=== PATIENT | male | born 1990 | race Caucasian/White ===

== ENCOUNTER 2017-05-13 03:43 | Emergency (ER) | payer OTHER ==
[~2017-05-13] VITALS: Ht 180.3 cm; Wt 104.1 kg
[~2017-05-13 03:43] MED LIST: ATEN50TA8 PO; BUPR1SUB SL
[2017-05-13 03:47] VITALS: TEMP 36.8; Ht 180.3 cm; Wt 104.1 kg
[2017-05-13] MEDS ORDERED: KETOROLAC TROMETHAMINE 30 MG/ML VIAL IV STA (03:59)
[2017-05-13 04:29] VITALS: O2SAT 96
[2017-05-13 04:56] LABS: BASO % 0.4 %; BASO ABS # 0.03 K/uL (0-0.2); EOS % 1.8 %; EOS ABS # 0.14 K/uL (0-0.5); HEMATOCRIT 40.1 % (42-52); HEMOGLOBIN 13.6 g/dL (14.0-18.0); IG# 0.01 K/uL (0.00-0.02); LYMPH % 31.6 %; LYMPH ABS # 2.44 K/uL (1.2-3.4); MEAN CELL VOLUME 91.3 fL (80-100); MEAN CORPUSCULAR HGB CONC 33.9 g/dl (32-36); MONO % 8.8 %; MONO ABS # 0.68 K/uL (0.11-0.59); NEUT % 57.3 %; NEUT ABS # 4.41 K/uL (1.4-6.5); PLATELET COUNT 154 K/uL (130-400); RED CELL DISTRIBUTION WIDTH SD 43.4 fL (36.4-46.3); WHITE BLOOD COUNT 7.71 K/uL (4.8-10.8)
[2017-05-13] MEDS ORDERED: OPTIRAY 320 IV PRN (05:15)
[2017-05-13 05:20] LABS: ALBUMIN 3.5 gm/dl (3.4-5.0); ALT/SGPT 40 U/L (12-78); AST/SGOT 16 U/L (15-37); BLOOD UREA NITROGEN 3 mg/dl (7-18); CALCIUM 8.5 mg/dl (8.5-10.1); CARBON DIOXIDE 31 mmol/L (21-32); CREATININE 0.61 mg/dl (0.60-1.40); GLUCOSE 92 mg/dl (70-99); LIPASE 83 U/L (73-393); POTASSIUM 3.8 mmol/L (3.5-5.1); SODIUM 136 mmol/L (136-145)
[2017-05-13 05:26] LABS: ALKALINE PHOSPHATASE 81 U/L (45-117); TOTAL PROTEIN 7.1 gm/dl (6.4-8.2)
[2017-05-13] MEDS ORDERED: BUPR8SUB19 SL (06:31)
--- NOTE | 2017-05-13 06:51 | EMERGENCY ROOM VISIT NOTE ---
History First contact with patient: 03:56 Chief Complaint: CHEST PAIN Stated Complaint: SHOULDER PAIN,CHEST PAIN Nursing Triage Summary: Pain started 05/12 in right upper chest, about 1600 yesterday pain radiated to left loer chest. Pt denies SOB. History of Present Illness The patient is a 27 year old male who presents to the Emergency Room with complaints of anterior chest pain with mild source of breath past day. Patient states he woke up with right-sided chest pain that has now progressed throughout his chest. He does smoke. No recent travel. No recent IV drug abuse. Last use was one year ago. There is a family history of heart disease. Patient describes the pain as aching, ranging in severity 5 out of 10 worse with movement and better with rest. Patient denies fever, chills, cough, congestion, abdominal pain, leg pain or swelling. Review of Systems See HPI for pertinent positives & negatives. A total of 10 systems reviewed and were otherwise negative. Past Medical/Surgical History none Social History Smoking Status: Current Every Day Smoker Alcohol Use: occasionally Drug Use: other (patient is a history of methadone and heroin use. Last use was one year ago) Current/Historical Medications Scheduled Buprenorphine Hcl (Subutex), 1.5 TAB SL BID Physical Exam Vital Signs Date Time Temp Pulse Resp B/P (MAP) Pulse Ox O2 Delivery O2 Flow Rate FiO2 05/13/17 06:08 93 20 102/64 99 Room Air 05/13/17 05:07 101 22 102/64 96 Room Air 05/13/17 04:29 96 Room Air 05/13/17 04:26 Room Air 05/13/17 04:26 Room Air 05/13/17 04:04 104 05/13/17 03:47 36.8 98 18 125/64 98 Room Air Physical Exam VITALS: Vitals are noted on the nurse's note and reviewed by myself. Vital signs stable. GENERAL:white male, in no acute distress, nondiaphoretic, well-developed well- nourished. SKIN: The skin was without rashes, erythema, edema, or bruising. There is no tenting of the skin. Capillary reflex less than 2 seconds. HEAD: Normocephalic atraumatic. EARS: External auditory canals clear, tympanic membranes pearly turner without erythema or effusion bilaterally. EYES: Pupils equal round and reactive to light and accommodation. Conjunctivae without injection, sclerae without icterus. Extraocular movements intact. NOSE: Patent, turbinates without inflammation or discharge. MOUTH: Mucous membranes moist. Pharynx without erythema or exudate. Uvula midline. Airway patent. Tongue does not deviate. NECK: Supple without nuchal rigidity. No lymphadenopathy. No thyromegaly. Cervical spine is nontender. No JVD. HEART: Regular rate and rhythm without murmurs gallops or rubs. LUNGS: Clear to auscultation bilaterally without wheezes, rales or rhonchi. No dullness to percussion. No retractions or accessory muscle use. Chest nontender to palpation ABDOMEN: Positive bowel sounds x 4. Normal tympanic percussion. Soft, nontender, without masses or organomegaly. Schwartz sign negative. No guarding or rebound tenderness. MUSCULOSKELETAL: No muscle atrophy, erythema, or edema noted. NEURO: Patient was alert and oriented to person place and time. Normal sensation to light and sharp touch. No focal neurological deficits. Medical Decision & Procedures Laboratory Results 05/13/17 04:38 Red Blood Count 4.39, Mean Corpuscular Volume 91.3, Mean Corpuscular Hemoglobin 31.0, Mean Corpuscular Hemoglobin Concent 33.9, Mean Platelet Volume 12.0, Neutrophils (%) (Auto) 57.3, Lymphocytes (%) (Auto) 31.6, Monocytes (%) (Auto) 8.8, Eosinophils (%) (Auto) 1.8, Basophils (%) (Auto) 0.4, Neutrophils # (Auto) 4.41, Lymphocytes # (Auto) 2.44, Monocytes # (Auto) 0.68, Eosinophils # (Auto) 0.14, Basophils # (Auto) 0.03 05/13/17 04:38 Test 05/13/17 04:38 05/13/17 04:40 White Blood Count 7.71 K/uL (4.8-10.8) Red Blood Count 4.39 M/uL (4.7-6.1) Hemoglobin 13.6 g/dL (14.0-18.0) Hematocrit 40.1 % (42-52) Mean Corpuscular Volume 91.3 fL (80-100) Mean Corpuscular Hemoglobin 31.0 pg (25-34) Mean Corpuscular Hemoglobin Concent 33.9 g/dl (32-36) Platelet Count 154 K/uL (130-400) Mean Platelet Volume 12.0 fL (7.4-10.4) Neutrophils (%) (Auto) 57.3 % Lymphocytes (%) (Auto) 31.6 % Monocytes (%) (Auto) 8.8 % Eosinophils (%) (Auto) 1.8 % Basophils (%) (Auto) 0.4 % Neutrophils # (Auto) 4.41 K/uL (1.4-6.5) Lymphocytes # (Auto) 2.44 K/uL (1.2-3.4) Monocytes # (Auto) 0.68 K/uL (0.11-0.59) Eosinophils # (Auto) 0.14 K/uL (0-0.5) Basophils # (Auto) 0.03 K/uL (0-0.2) RDW Standard Deviation 43.4 fL (36.4-46.3) RDW Coefficient of Variation 13.0 % (11.5-14.5) Immature Granulocyte % (Auto) 0.1 % Immature Granulocyte # (Auto) 0.01 K/uL (0.00-0.02) Anion Gap 4.0 mmol/L (3-11) Est Creatinine Clear Calc Drug Dose 223.3 ml/min Estimated GFR () > 150.0 Estimated GFR (Non- 136.9 BUN/Creatinine Ratio 4.8 (10-20) Calcium Level 8.5 mg/dl (8.5-10.1) Total Bilirubin 0.2 mg/dl (0.2-1) Direct Bilirubin < 0.1 mg/dl (0-0.2) Aspartate Amino Transf (AST/SGOT) 16 U/L (15-37) Alanine Aminotransferase (ALT/SGPT) 40 U/L (12-78) Alkaline Phosphatase 81 U/L (45-117) Troponin I < 0.015 ng/ml (0-0.045) Total Protein 7.1 gm/dl (6.4-8.2) Albumin 3.5 gm/dl (3.4-5.0) Lipase 83 U/L (73-393) Bedside D-Dimer > 450 ng/mlFEU (0-450) Bedside Troponin I < 0.030 ng/ml (0-0.045) Medications Administered Medications (Trade) Dose Ordered Sig/Carmen Route Start Time Stop Time Status Last Admin Dose Admin Ketorolac Tromethamine (Toradol Inj) 30 mg NOW STAT IV 05/13/17 03:59 05/13/17 04:00 DC 05/13/17 05:04 30 MG ED Course Prior records/ancillary studies reviewed. Triage Nursing notes reviewed. Additional history obtained from friend. The patient's history was concerning for chest pain. Differential diagnosis: Etiologies such as cardiac ischemia, aortic dissection, pulmonary embolism, pneumonia, pneumothorax, musculoskeletal, infections, pericarditis, myocarditis , esophageal rupture, gastrointestinal, as well as others were entertained. Physical examination: As above. ER treatment provided: Toradol On reassessment the patient felt better. Diagnostic interpretation by me: The electrocardiogram was negative for pathologic change. Normal sinus, normal intervals, poor baseline, no acute ST-T wave changes. Impression normal sinus rhythm interpreted by myself The labs revealed negative troponin. Elevated d-dimer Imaging studies: Chest x-ray with no acute consolidation, pneumothorax or free air per my interpretation CTA CHEST: No evidence of pulmonary embolism or aortic dissection. Probable atelectatic changes. No pneumothorax or pleural effusion. Small mediastinal and hilar lymph nodes. Radiologist: Sandy Vail M.D. Study ready at 06:15 and initial results transmitted at 06:49 Exam and history seem consistent with chest pain unlikely to be cardiac in etiology. Patient had unremarkable workup as above. Negative troponin 2. He was advised to take NSAIDs for the pain and follow-up family care in a few days or here in the ER sooner for chest pain, difficulty breathing, worsening signs or symptoms or as needed. By the evaluation outlined above emergent etiologies such as cardiac ischemia, aortic dissection, pulmonary embolism, pneumonia, pneumothorax, infections, pericarditis, myocarditis, gastrointestinal, as well as others were deemed relatively unlikely. The pt informed about the findings as listed above. All questions were answered and pleased with the treatment. Return instructions were outlined and the patient was discharged in stable condition. Case reviewed with my attending Referral: The patient was referred back to primary care physician for follow-up in 2 to 3 days for a recheck of the current condition. The chart was completed utilizing [employer] voice recognition software. Grammatical errors, random word insertions, pronoun errors, and incomplete sentences are an occassional consequence of this system due to software limitations, ambient noise, and hardware issues. Any formal questions or concerns about the content, text, or information contained within the body of this dictation should be directly addressed to the physician junior assistant manager for clarification. Medical Decision As above Medication Reconcilliation Current Medication List: was personally reviewed by me Blood Pressure Screening Patient's blood pressure: Normal blood pressure Impression Primary Impression: Chest wall pain Departure Information Dispostion Home / Self-Care Condition GOOD Referrals No Doctor, Assigned (PCP) Patient Instructions My [facility] Additional Instructions Ibuprofen(Motrin, Advil) may be used for fever or pain. Use 600mg every six hours as needed. Take with food. Avoid using more than 2400mg in a 24 hour period. Do not use 2400mg per day for more than three consecutive days without physician direction. Prolonged inappropriate use can lead to stomach upset or ulcers. (AND/OR) Acetaminophen(Tylenol) may be used for fever or pain. Use 1000mg every six hours as needed. Avoid using more than 3000mg in a 24 hour period. Rest and drink plenty of fluids as tolerated. Continue current medications. Avoid strenuous activities and anything that worsens your pain. Resume normal activities once your symptoms resolve. Return to the ER immediately for worsening or persistent chest pain, abdominal pain, vomiting, fevers, chest pains, difficulty breathing, worsening of your condition, or as needed. Follow up with your primary physician in 2-3 days for a recheck of your current condition.
[2017-05-13 07:12] VITALS: BP 112/69; PULSE 87; O2SAT 98
--- NOTE | 2017-05-13 07:40 | DIAGNOSTIC IMAGING REPORT ---
CHEST ONE VIEW PORTABLE HISTORY: Atypical CHEST PAIN COMPARISON: None. FINDINGS: The lungs are clear. Cardiac silhouette is normal in size. No pleural effusions. No pneumothorax. Low lung volumes. IMPRESSION: No acute process. Electronically signed by: Timmy Cassidy M.D. 05/13/2017 7:39 AM Dictated Date/Time: 05/13/2017 7:38 AM
--- NOTE | 2017-05-13 07:44 | DIAGNOSTIC IMAGING REPORT ---
CT ANGIOGRAM OF THE CHEST CLINICAL HISTORY: Atypical chest pain. COMPARISON STUDY: Chest x-ray dated 05/13/2017. TECHNIQUE: Following the IV administration of 93 cc of Optiray 320, CT angiogram of the chest was performed from the upper abdomen to the thoracic inlet utilizing the pulmonary embolus protocol. Images are reviewed in the axial, sagittal, and coronal planes. 3-D MIPS images are created and assessed. IV contrast was administered without complication. A dose lowering technique was utilized adhering to the principles of ALARA. CT DOSE: 618.73 mGy.cm FINDINGS: Thyroid: Imaged portions of the thyroid gland are normal in size and attenuation. Thoracic aorta: The thoracic aorta is normal in caliber and demonstrates bovine variant arch anatomy. No dissection is seen. Pulmonary vasculature: The pulmonary trunk is normal in caliber. There are no filling defects identified in main, lobar, or proximal segmental pulmonary branches to suggest pulmonary embolus. Evaluation of the peripheral branches is degraded by suboptimal contrast opacification. Heart: The heart is normal in size and configuration, and without pericardial effusion. Lungs and pleural spaces: There are low lung volumes with bibasilar atelectasis. No airspace consolidation is seen typical for pneumonia and there is no pleural effusion. The trachea and central airways are clear. Mild peribronchial thickening suggests reactive airway disease. Mediastinum: There are mildly enlarged mediastinal lymph nodes. Prevascular node on image #200 measures 1.1 cm in short axis. Angela: Clear. Axillae: There is no axillary lymphadenopathy. Upper abdomen: The spleen is enlarged, measuring 15.1 cm in length. Partially visualized upper abdominal viscera is otherwise within normal limits. Skeletal structures: No lytic or blastic bony lesions are seen. IMPRESSION: 1. There is no evidence of pulmonary embolus in the main, lobar, or proximal segmental pulmonary arteries. 2. Low lung volumes and bibasilar atelectasis. 3. There is no airspace consolidation typical for pneumonia or pleural effusion. Peribronchial thickening suggests reactive air disease. Clinical correlation will be required. 4. Splenomegaly. 5. There is a mildly enlarged prevascular lymph node, likely on a reactive basis. Electronically signed by: Jonny Mendez M.D. 05/13/2017 7:43 AM Dictated Date/Time: 05/13/2017 7:38 AM
== END 2017-05-13 07:13 | disposition home or self-care (01) ==
LOC: C.EDB 03:44
DX: R07.89 Other chest pain (principal); F17.200 Nicotine dependence, unspecified, uncomplicated

== ENCOUNTER → 2017-05-28 | Outpatient (CLI) | payer OTHER ==
[~2017-05-28] MED LIST changes: -ATEN50TA8 PO; -BUPR1SUB SL; +BUPR8SUB19 SL
[2017-05-28 17:25] LABS: BASO % 0.3 %; BASO ABS # 0.03 K/uL (0-0.2); EOS % 1.3 %; EOS ABS # 0.14 K/uL (0-0.5); HEMATOCRIT 41.4 % (42-52); IG# 0.05 K/uL (0.00-0.02); LYMPH % 29.8 %; LYMPH ABS # 3.25 K/uL (1.2-3.4); MEAN CELL VOLUME 92.2 fL (80-100); MEAN CORPUSCULAR HEMOGLOBIN 31.2 pg (25-34); MEAN CORPUSCULAR HGB CONC 33.8 g/dl (32-36); MONO % 6.9 %; MONO ABS # 0.75 K/uL (0.11-0.59); NEUT % 61.2 %; NEUT ABS # 6.68 K/uL (1.4-6.5); PLATELET COUNT 208 K/uL (130-400); RED CELL DISTRIBUTION WIDTH CV 13.4 % (11.5-14.5); RED CELL DISTRIBUTION WIDTH SD 45.1 fL (36.4-46.3)
[2017-05-28 17:36] LABS: ALKALINE PHOSPHATASE 76 U/L (45-117); ALT/SGPT 35 U/L (12-78); AST/SGOT 29 U/L (15-37); TOTAL PROTEIN 7.9 gm/dl (6.4-8.2)
== END | disposition home or self-care (01) ==
LOC: C.LABPBG 11:28
PROVIDERS: ATTEND Family Medicine
DX: F15.20 Other stimulant dependence, uncomplicated (principal)